=== PATIENT | female | born 1930 | race Caucasian/White ===

== ENCOUNTER 2016-07-29 | Emergency (ER) | payer MEDICARE, OTHER | END 2016-07-29 22:40 | disposition left against medical advice (07) | DX: Z53.21 Procedure and treatment not carried out due to patient leaving prior to being seen by health care provider (principal) | CPT/HCPCS: 71010 ==

== ENCOUNTER → 2016-07-30 | Outpatient (CLI) | payer MEDICARE, OTHER | LOC: RAD 14:54 | DX: R52 Pain, unspecified (principal); W19.XXXA Unspecified fall, initial encounter | CPT/HCPCS: 71010; 71100 ==